=== PATIENT | female | born 1960 | race American Indian/Alaskan Native ===

== ENCOUNTER 2018-03-20 06:26 | Emergency (ER) | payer SELFPAY ==
[2018-03-20 06:38] VITALS: RESP 20; TEMP 98.2; O2SAT 98
--- NOTE | 2018-03-20 07:06 | C.PDOC ---
History Of Present Illness 57 year old female presents to the ED via EMS for evaluation of lower back pain s/p slip and fall prior to arrival. The patient reports walking in the morning when she slipped on ice, bumping her head, EMS called by bystanders. 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 Denies LOC, other injuries, and any other associated symptoms. - HPI Chief Complaint (Nursing): Trauma History Per: Patient History/Exam Limitations: no limitations Onset/Duration Of Symptoms: Other (prior to arrival. ) Injury Occurred (Timing): Just Before Arrival Recent travel outside of the [place]: No - Fall Fall:Prior To Injury: Slipped (on ice. ) Past Medical History Reviewed: Historical Data, Nursing Documentation, Vital Signs Vital Signs: Last Vital Signs Temp 98.2 F 03/20/18 06:34 Pulse 88 03/20/18 06:34 Resp 20 03/20/18 06:34 BP 159/94 H 03/20/18 06:34 Pulse Ox 98 03/20/18 06:34 - Medical History PMH: Gastrointestinal Ulcer Surgical History: Cholecystectomy Family History: States: Unknown Family Hx - Social History Hx Alcohol Use: Yes Hx Substance Use: No - Immunization History Hx Tetanus Toxoid Vaccination: No Hx Influenza Vaccination: No Hx Pneumococcal Vaccination: No Review Of Systems Constitutional: Negative for: Fever, Chills, Weakness Eyes: Negative for: Redness, Other (scleral icterus.) ENT: Negative for: Mouth Swelling Cardiovascular: Negative for: Chest Pain Respiratory: Negative for: Cough, Shortness of Breath Gastrointestinal: Negative for: Nausea, Vomiting, Diarrhea Genitourinary: Negative for: Dysuria, Hematuria Musculoskeletal: Positive for: Back Pain (lower back pain. ) Skin: Negative for: Rash Neurological: Negative for: Weakness, Numbness, Dizziness, Other (LOC. ) Physical Exam - Physical Exam Appears: Well, Non-toxic, No Acute Distress Skin: Normal Color, Warm, No Rash Head: Atraumatic, Normacephalic Eye(s): bilateral: Normal Inspection, PERRL, EOMI, Other ((-) scleral icterus) Ear(s): Bilateral: Other ((-) drainage. ) Nose: Normal Oral Mucosa: Moist Throat: Normal ((-) swelling. (-) injection. ), No Exudate, Other (airway patent. ) Neck: Normal ROM, Supple Chest: Symmetrical Cardiovascular: Rhythm Regular, No Murmur Respiratory: No Accessory Muscle Use, Other (normal inspiratory effort. ) Gastrointestinal/Abdominal: Normal Exam, Soft, No Tenderness Back: No Vertebral Tenderness, No Paraspinal Tenderness, Other ((+) left-sided lower back tenderness. ambulating with steady upright gait. ) Extremity: Bilateral: Atraumatic, Normal ROM Pulses: Left Radial: Normal (2+), Right Radial: Normal (2+) Neurological/Psych: Oriented x3, Normal Cranial Nerves (grossly intact. ) Gait: Steady ED Course And Treatment O2 Sat by Pulse Oximetry: 98 (RA) Pulse Ox Interpretation: Normal Medical Decision Making Medical Decision Making: Plan: -Flexeril -Motrin Progress/Update: Patient stable for discharge home. Prescribed Flexeril and advised follow up with PMD within 2 days. Advised to return to the ED if symptoms worsen. Disposition Counseled Patient/Family Regarding: Diagnosis, Need For Followup - Disposition Disposition: HOME/ ROUTINE Disposition Time: 07:01 Condition: STABLE Prescriptions: Cyclobenzaprine [Flexeril] 5 mg PO TID PRN #15 tab PRN Reason: Pain, Moderate (4-7) Instructions: Low Back Pain in Adults, Preventing Falls Forms: General Discharge Instructions, [facility] ([place]), Work Excuse - Clinical Impression Clinical Impression: Accidental fall, Low back pain - Scribe Statement The provider has reviewed the documentation as recorded by the Scribe (Yin Herrera) All medical record entries made by the Scribe were at my direction and personally dictated by me. I have reviewed the chart and agree that the record accurately reflects my personal performance of the history, physical exam, medical decision making, and the department course for this patient. I have also personally directed, reviewed, and agree with the discharge instructions and disposition.
[2018-03-20 08:36] VITALS: BP 147/82; PULSE 62
== END 2018-03-20 08:36 | disposition home or self-care (01) ==
LOC: C.ER 06:26
DX: M54.5 Low back pain (principal); W00.0XXA Fall on same level due to ice and snow, initial encounter; Y93.01 Activity, walking, marching and hiking